=== PATIENT | male | born 1985 | race African-American/Black ===

== ENCOUNTER 2016-08-30 03:23 | Emergency (ER) | payer SELFPAY ==
[~2016-08-30] VITALS: Ht 172.7 cm; Wt 59.8 kg
[2016-08-30 03:42] VITALS: TEMP 37.1; Ht 172.7 cm; Wt 59.8 kg
[2016-08-30] MEDS ORDERED: ONDANSETRON INJ 2 MG/ML 2 ML VIAL IV STA (03:58)
[2016-08-30] MEDS ORDERED: SODIUM CHLORIDE 0.9% 1000ML 1,000 ML IV ONE ×2 (04:00)
[2016-08-30 04:12] LABS: BASO % 0.2 %; BASO ABS # 0.02 K/uL (0-0.2); COMPLETE YES; EOS % 0.1 %; HEMATOCRIT 44.3 % (42-52); IG% 0.2 %; LYMPH % 14.5 %; LYMPH ABS # 1.19 K/uL (1.2-3.4); MEAN CORPUSCULAR HEMOGLOBIN 29.9 pg (25-34); MEAN CORPUSCULAR HGB CONC 34.8 g/dl (32-36); MEAN PLATELET VOLUME 11.1 fL (7.4-10.4); PLATELET COUNT 238 K/uL (130-400); RED BLOOD COUNT 5.15 M/uL (4.7-6.1); WHITE BLOOD COUNT 8.22 K/uL (4.8-10.8)
[2016-08-30 04:29] LABS: BUN/CREATININE RATIO 8.5 (10-20); CALCIUM 9.7 mg/dl (8.5-10.1); CREATININE 1.1 mg/dl (0.60-1.40); MAGNESIUM 1.9 mg/dl (1.8-2.4); POTASSIUM 3.3 mmol/L (3.5-5.1)
[2016-08-30 04:32] LABS: ALB/GLOB RATIO 1.3 (0.9-2)
[2016-08-30 06:06] LABS: MANUAL MICROSCOPIC REQUIRED? NO; REVIEW REQ? YES; URINE APPEARANCE CLEAR (CLEAR); URINE BILIRUBIN NEG (NEG); URINE COLOR YELLOW; URINE EPITHELIAL CELL AUTO >30 /lpf (0-5); URINE NITRITE NEG (NEG); URINE PH >= 9.0 (4.5-7.5); URINE SPECIFIC GRAVITY 1.023 (1.000-1.030); UROBILINOGEN NEG (NEG); ZZUR CULT IF INDIC CLEAN CATCH NO
[2016-08-30 06:07] LABS: SULFASALICYLIC ACID NEG (NEG)
[2016-08-30 06:08] LABS: BENZODIAZEPINE, URINE NEG (NEG); COCAINE,URINE NEG (NEG); PHENCYCLIDINE, URINE NEG (NEG)
[2016-08-30] MEDS ORDERED: ONDANSETRON HOME PACK 4MG OD TAB PO ONE (06:15)
[2016-08-30 06:17] LABS: URINE MUCUS PRESENT (NONE PRSENT)
[2016-08-30 06:22] VITALS: BP 130/80; PULSE 78; O2SAT 98
--- NOTE | 2016-08-31 06:16 | EMERGENCY ROOM VISIT NOTE ---
History First contact with patient: 03:44 Chief Complaint: ABDOMINAL PAIN Stated Complaint: NAUSEA/VOMITING/ABDOMINAL PAIN Nursing Triage Summary: patient presents to ED via EMS after traveling from [place] to [place] and en route patient developed c/o abdominal pain , nausea, vomiting. patient states he has had these same symptoms intermittently since he was a child with no changes. patient states about a month ago he was going to be kept as observation in a hospital but signed himself out AMA. patient vomiting bile upon entry to eD. History of Present Illness The patient is a 31 year old male who presents to the Emergency Room with complaints of nausea and vomiting for the past 2-3 hours. The patient is from the [facility] and was traveling on a [employer] bus from [facility] back home. The patient has abdominal cramping but no significant pain. He states that he had a similar episode one month ago back in [place] , where he was seen in an emergency department. The patient does not know his exact diagnosis and did not follow up as he signed himself out AGAINST MEDICAL ADVICE. The patient rates his discomfort a 5/10. He has not taken anything [id number] for his symptoms. Review of Systems More than 10 systems were reviewed and otherwise negative with the exception of history of present illness. Past Medical/Surgical History No chronic medical disease Family History No pertinent family history Social History Smoking Status: Never Smoker Drug Use: marijuana Housing Status: lives alone Current/Historical Medications No Active Prescriptions or Reported Meds Allergies Coded Allergies: No Known Allergies (Unverified , 08/30/16) Physical Exam Vital Signs Date Time Temp Pulse Resp B/P Pulse Ox O2 Delivery O2 Flow Rate FiO2 08/30/16 06:22 78 20 130/80 98 08/30/16 05:26 91 20 138/81 96 Room Air 08/30/16 03:42 37.1 54 20 111/89 96 Room Air Pain Rating (0-10): 4.0 Physical Exam VITALS: Vitals are noted on the nurse's note and reviewed by myself. Vital signs stable. GENERAL: Well-developed, well-nourished, black male, who is in no acute distress and resting comfortably. Patient is cooperative with the examination. HEAD: Normocephalic atraumatic. MOUTH: Mucous membranes moist. Tonsils are not enlarged. Pharynx without erythema, blood, or exudate. Uvula midline. Airway patent. NECK: Supple without nuchal rigidity. No lymphadenopathy. No thyromegaly. Cervical spine is nontender. HEART: Regular rate and rhythm without murmurs gallops or rubs. LUNGS: Clear to auscultation bilaterally without wheezes, rales or rhonchi. No retractions or accessory muscle use. ABDOMEN: Positive normal bowel sounds x 4. Soft, nontender, without masses or organomegaly. No guarding or rebound tenderness. MUSCULOSKELETAL: No muscle atrophy, erythema, or edema noted. Full range of motion without joint tenderness in all extremities. Medical Decision & Procedures Laboratory Results 08/30/16 03:35 Red Blood Count 5.15, Mean Corpuscular Volume 86.0, Mean Corpuscular Hemoglobin 29.9, Mean Corpuscular Hemoglobin Concent 34.8, Mean Platelet Volume 11.1, Neutrophils (%) (Auto) 79.0, Lymphocytes (%) (Auto) 14.5, Monocytes (%) (Auto) 6.0, Eosinophils (%) (Auto) 0.1, Basophils (%) (Auto) 0.2, Neutrophils # (Auto) 6.49, Lymphocytes # (Auto) 1.19, Monocytes # (Auto) 0.49, Eosinophils # (Auto) 0.01, Basophils # (Auto) 0.02 08/30/16 03:35 Test 08/30/16 00:00 08/30/16 03:35 08/30/16 05:39 Urine Color YELLOW Urine Appearance CLEAR (CLEAR) Urine pH >= 9.0 (4.5-7.5) Urine Specific [place] 1.023 (1.000-1.030) Urine Protein NEG (NEG) Urine Glucose (UA) NEG (NEG) Urine Ketones 1+ (NEG) Urine Occult Blood NEG (NEG) Urine Nitrite NEG (NEG) Urine Bilirubin NEG (NEG) Urine Urobilinogen NEG (NEG) Urine Leukocyte Esterase NEG (NEG) Urine WBC (Auto) 1-5 /hpf (0-5) Urine RBC (Auto) 0-4 /hpf (0-4) Urine Hyaline Casts (Auto) 0 /lpf (0-5) Urine Epithelial Cells (Auto) >30 /lpf (0-5) Urine Bacteria (Auto) NEG (NEG) Urine Renal Epithelial Cells /lpf (0-5) Urine Mucus PRESENT (NONE PRSENT) Urine Sperm (Auto) PRESENT (NOT PRESENT) White Blood Count 8.22 K/uL (4.8-10.8) Red Blood Count 5.15 M/uL (4.7-6.1) Hemoglobin 15.4 g/dL (14.0-18.0) Hematocrit 44.3 % (42-52) Mean Corpuscular Volume 86.0 fL (80-100) Mean Corpuscular Hemoglobin 29.9 pg (25-34) Mean Corpuscular Hemoglobin Concent 34.8 g/dl (32-36) Platelet Count 238 K/uL (130-400) Mean Platelet Volume 11.1 fL (7.4-10.4) Neutrophils (%) (Auto) 79.0 % Lymphocytes (%) (Auto) 14.5 % Monocytes (%) (Auto) 6.0 % Eosinophils (%) (Auto) 0.1 % Basophils (%) (Auto) 0.2 % Neutrophils # (Auto) 6.49 K/uL (1.4-6.5) Lymphocytes # (Auto) 1.19 K/uL (1.2-3.4) Monocytes # (Auto) 0.49 K/uL (0.11-0.59) Eosinophils # (Auto) 0.01 K/uL (0-0.5) Basophils # (Auto) 0.02 K/uL (0-0.2) RDW Standard Deviation 40.5 fL (36.4-46.3) RDW Coefficient of Variation 12.8 % (11.5-14.5) Immature Granulocyte % (Auto) 0.2 % Immature Granulocyte # (Auto) 0.02 K/uL (0.00-0.02) Anion Gap 12.0 mmol/L (3-11) Est Creatinine Clear Calc Drug Dose 80.8 ml/min Estimated GFR () 101.7 Estimated GFR (Non- 87.7 BUN/Creatinine Ratio 8.5 (10-20) Calcium Level 9.7 mg/dl (8.5-10.1) Magnesium Level 1.9 mg/dl (1.8-2.4) Total Bilirubin 0.5 mg/dl (0.2-1) Aspartate Amino Transf (AST/SGOT) 15 U/L (15-37) Alanine Aminotransferase (ALT/SGPT) 26 U/L (12-78) Alkaline Phosphatase 73 U/L (45-117) Total Protein 8.2 gm/dl (6.4-8.2) Albumin 4.6 gm/dl (3.4-5.0) Globulin 3.6 gm/dl (2.5-4.0) Albumin/Globulin Ratio 1.3 (0.9-2) Lipase 164 U/L (73-393) Urine Opiates Screen NEG (NEG) Urine Methadone, Qualitative NEG (NEG) Urine Barbiturates NEG (NEG) Urine Phencyclidine (PCP) Level NEG (NEG) Ur Amphetamine/Methamphetamine NEG (NEG) MDMA (Ecstasy) Screen NEG (NEG) Urine Benzodiazepines Screen NEG (NEG) Urine Cocaine Metabolite NEG (NEG) Urine Marijuana (THC) POS (NEG) Medications Administered Medications (Trade) Dose Ordered Sig/Odalis Route Start Time Stop Time Status Last Admin Dose Admin Sodium Chloride 1,000 ml @ 999 mls/hr Q1H1M ONCE IV 08/30/16 04:00 08/30/16 05:00 DC 08/30/16 04:15 999 MLS/HR Sodium Chloride (Nss 1000ml) 1,000 ml @ 999 mls/hr Q1H1M ONCE IV 08/30/16 04:00 08/30/16 05:00 DC 08/30/16 04:15 999 MLS/HR Ondansetron HCl (Zofran Inj) 8 mg NOW STAT IV 08/30/16 03:58 08/30/16 03:59 DC 08/30/16 04:13 8 MG Ondansetron HCl (ZOFRAN ODT 4MG Home Pack) 1 homepack UD ONCE PO 08/30/16 06:15 08/30/16 06:16 DC 08/30/16 06:15 1 HOMEPACK ED Course Physical exam and history were performed. Nursing notes and EMR were reviewed. Patient appears to have nausea and vomiting for the past few hours. The patient does not appear toxic on examination. IV access was established and labs were obtained. The patient was hydrated with normal saline and given IV Zofran for his symptoms. The patient's blood work is as above and was reviewed. He does not have a significantly elevated white blood cell count, anemia, bandemia, or gross electrolyte imbalance. Lipase and transaminases are nondiagnostic. His urine is without evidence of infection. Drug of abuse screen was positive for marijuana. The patient was reevaluated multiple times while under our care. Repeat abdominal exams showed no worsening of symptoms. The patient felt much better after Zofran. I suspect that his symptoms tonight may be viral or foodborne in etiology. He may also be having some motion sickness from riding on a bus. He also may have some cyclic vomiting from chronic marijuana use. The patient overall does not appear to have a surgical abdomen. He will be given a home pack of Zofran. I involved case management and nursing to help provide the patient with information to take public transportation from the hospital to the bus station [facility]. From there he can arrange transport back to [place]. The patient was pleased with this and voiced understanding. He is to follow with his PCP upon returning home. He was invited the ER anytime and rated his discomfort a 0 /10 at the time of departure. The chart was completed utilizing [employer] Voice Recognition Software. Grammatical errors, random word insertions, pronoun errors, and incomplete sentences are an occasional consequence of this system due to software limitations, ambient noise, and hardware issues. Any formal questions or concerns about the content, text, or information contained within the body of this dictation should be directly addressed to the provider for clarification. . Medical Decision Differential diagnosis: Etiologies such as gastroenteritis, food borne illness, infections, appendicitis , diverticulitis, inflammatory bowel disease, obstruction, GI bleed, biliary pathology, as well as others were entertained. Impression Primary Impression: Nausea and vomiting Departure Information Dispostion Home / Self-Care Condition GOOD Prescriptions No Active Prescriptions or Reported Meds Forms Call Back Authorization, HOME CARE DOCUMENTATION FORM, IMPORTANT VISIT INFORMATION Patient Instructions My [facility] Additional Instructions You were seen and evaluated today on an emergency basis only. This is not a substitute for, or an effort to provide, complete comprehensive medical care. It is not possible to recognize and treat all injuries or illnesses in a single emergency department visit. For this reason it is recommended that you followup with Your primary care physician upon returning home for further care and management. Zofran 1 tablet every 6 hrs as needed for nausea. Drink plenty of fluids and remain well hydrated. You will be able to take the [employer] bus from the Hospital to [facility]. The bus schedule is available at [email or web address] There is a [place] bus station in [facility] at [address] [address]. They can assist you with your travels back home. You are welcome to return to the emergency department anytime with new, worsening, or concerning symptoms.
== END 2016-08-30 06:23 | disposition home or self-care (01) ==
LOC: EDBD 03:23 → C.EDA 03:27
DX: R11.2 Nausea with vomiting, unspecified (principal)

== ENCOUNTER 2016-08-30 08:03 | Emergency (ER) | payer SELFPAY ==
[~2016-08-30] VITALS: Ht 172.7 cm; Wt 64.0 kg
[2016-08-30 08:08] VITALS: TEMP 37; Ht 172.7 cm; Wt 64.0 kg
[2016-08-30] MEDS ORDERED: KETOROLAC TROMETHAMINE 30 MG/ML VIAL IV STA (08:20)
[2016-08-30] MEDS ORDERED: SODIUM CHLORIDE 0.9% 1000ML 1,000 ML IV STA (08:20)
[2016-08-30] MEDS ORDERED: ONDANSETRON INJ 2 MG/ML 2 ML VIAL IV STA (08:20)
[2016-08-30] MEDS ORDERED: OPTIRAY 320 IV PRN (08:30)
--- NOTE | 2016-08-30 08:39 | EMERGENCY ROOM VISIT NOTE ---
History First contact with patient: 08:08 Chief Complaint: ABDOMINAL PAIN Stated Complaint: ABDOMINAL PAIN Nursing Triage Summary: pt here with upper abd pains. pt called 911 from campus. pt just discharged from here one hour ago for same. pt took 4 mg zofran odt and then vomited. History of Present Illness The patient is a 31 year old male who presents to the Emergency Room with complaints of abdominal pain and vomiting. The patient was seen here overnight and was discharged approximately one hour ago. He was given a home pack of Zofran and states that he took one pill, but immediately vomited. The patient reports he has pain in the middle of his stomach as well as vomiting and diarrhea. The symptoms started yesterday, but he states that he has had similar symptoms since he was a child. He does not have a primary care provider and has never seen a specialist for his GI symptoms. He has not taken anything for pain. He rates his discomfort a 10/10. He denies any blood in his stools, melena, urinary symptoms, chest pain, shortness of breath, fevers or recent illness. Review of Systems A complete 10-point Review of Systems was discussed with the patient, with pertinent positives and negatives listed in the History of Present Illness. All remaining Review of Systems questions can be considered negative unless otherwise specified. Social History Smoking Status: Never Smoker Current/Historical Medications No Active Prescriptions or Reported Meds Allergies Coded Allergies: No Known Allergies (Unverified , 08/30/16) Physical Exam Vital Signs Date Time Temp Pulse Resp B/P Pulse Ox O2 Delivery O2 Flow Rate FiO2 08/30/16 10:45 75 16 119/85 99 Room Air 08/30/16 09:32 61 18 114/77 100 Room Air 08/30/16 08:10 56 08/30/16 08:08 37.0 59 18 116/68 100 Room Air Physical Exam VITALS: Vitals are noted on the nurse's note and reviewed by myself. Vital signs stable. GENERAL: This is a 31-year-old male, anxious appearing, nondiaphoretic, well- developed well-nourished. SKIN: Capillary reflex less than 2 seconds. HEART: Regular rate and rhythm without murmurs gallops or rubs. LUNGS: Clear to auscultation bilaterally without wheezes, rales or rhonchi. ABDOMEN: Positive bowel sounds x 4. The abdomen is soft with mild diffuse tenderness. No guarding or rebound tenderness. NEURO: Patient was alert and oriented to person place and time. Medical Decision & Procedures ER Provider Diagnostic Interpretation: CT SCAN OF THE ABDOMEN AND PELVIS WITH IV CONTRAST IMPRESSION: 1. There is hepatic periportal edema, which could be related to hydration status or possibly hepatic inflammation. 2. There is nonspecific gallbladder wall thickening and edema. This may be related to an adjacent hepatic process/edema. Correlation with hepatic transaminases and serum bilirubin levels will be required. 3. There is a small volume of free fluid in the pelvis, likely on a reactive basis. 4. Question mild wall thickening and hyperemia involving the distal/terminal ileum. Additionally, there is underdistention versus mild wall thickening seen within the transverse and descending colon. Correlate clinically for evidence of a mild nonspecific enterocolitis. Laboratory Results 08/30/16 08:25 Red Blood Count 5.01, Mean Corpuscular Volume 86.4, Mean Corpuscular Hemoglobin 30.7, Mean Corpuscular Hemoglobin Concent 35.6, Mean Platelet Volume 11.4, Neutrophils (%) (Auto) 84.4, Lymphocytes (%) (Auto) 10.4, Monocytes (%) (Auto) 4.9, Eosinophils (%) (Auto) 0.0, Basophils (%) (Auto) 0.2, Neutrophils # (Auto) 7.47, Lymphocytes # (Auto) 0.92, Monocytes # (Auto) 0.43, Eosinophils # (Auto) 0.00, Basophils # (Auto) 0.02 08/30/16 08:25 Test 08/30/16 08:25 White Blood Count 8.85 K/uL (4.8-10.8) Red Blood Count 5.01 M/uL (4.7-6.1) Hemoglobin 15.4 g/dL (14.0-18.0) Hematocrit 43.3 % (42-52) Mean Corpuscular Volume 86.4 fL (80-100) Mean Corpuscular Hemoglobin 30.7 pg (25-34) Mean Corpuscular Hemoglobin Concent 35.6 g/dl (32-36) Platelet Count 232 K/uL (130-400) Mean Platelet Volume 11.4 fL (7.4-10.4) Neutrophils (%) (Auto) 84.4 % Lymphocytes (%) (Auto) 10.4 % Monocytes (%) (Auto) 4.9 % Eosinophils (%) (Auto) 0.0 % Basophils (%) (Auto) 0.2 % Neutrophils # (Auto) 7.47 K/uL (1.4-6.5) Lymphocytes # (Auto) 0.92 K/uL (1.2-3.4) Monocytes # (Auto) 0.43 K/uL (0.11-0.59) Eosinophils # (Auto) 0.00 K/uL (0-0.5) Basophils # (Auto) 0.02 K/uL (0-0.2) RDW Standard Deviation 41.5 fL (36.4-46.3) RDW Coefficient of Variation 12.9 % (11.5-14.5) Immature Granulocyte % (Auto) 0.1 % Immature Granulocyte # (Auto) 0.01 K/uL (0.00-0.02) Anion Gap 18.0 mmol/L (3-11) Est Creatinine Clear Calc Drug Dose 86.5 ml/min Estimated GFR () 101.7 Estimated GFR (Non- 87.7 BUN/Creatinine Ratio 7.5 (10-20) Calcium Level 9.1 mg/dl (8.5-10.1) Total Bilirubin 0.7 mg/dl (0.2-1) Aspartate Amino Transf (AST/SGOT) 19 U/L (15-37) Alanine Aminotransferase (ALT/SGPT) 23 U/L (12-78) Alkaline Phosphatase 69 U/L (45-117) Total Protein 7.6 gm/dl (6.4-8.2) Albumin 4.3 gm/dl (3.4-5.0) Globulin 3.3 gm/dl (2.5-4.0) Albumin/Globulin Ratio 1.3 (0.9-2) Lipase 147 U/L (73-393) Medications Administered Medications (Trade) Dose Ordered Sig/Odalis Route Start Time Stop Time Status Last Admin Dose Admin Sodium Chloride (Nss 1000ml) 1,000 ml @ 999 mls/hr Q1H1M STAT IV 08/30/16 08:20 08/30/16 09:20 DC 08/30/16 08:20 999 MLS/HR Ketorolac Tromethamine (Toradol Inj) 30 mg NOW STAT IV 08/30/16 08:20 1/27/17 08:24 DC 08/30/16 08:29 30 MG Ondansetron HCl (Zofran Inj) 4 mg NOW STAT IV 08/30/16 08:20 08/30/16 08:24 DC 08/30/16 08:28 4 MG ECG Indication: abdominal pain Rate (beats per minute): 52 Rhythm: sinus bradycardia Findings: no acute ischemic change, no ectopy Comparison ECG Date: no prior available Medical Decision Differential diagnosis includes gastroenteritis, colitis, appendicitis, cholecystitis, among others. The patient was evaluated as above. Labs were drawn and IV access was obtained. Imaging studies were performed and read by radiology as above. The patient was medicated with 30 mg Toradol IV and 4 mg Zofran IV. He was hydrated with 1 L normal saline solution. The patient was reassessed multiple times during their stay in the emergency department and remained in stable condition. The patient is a 31-year-old male who presents today complaining of nausea and vomiting associated with abdominal pain. The patient was seen here several hours ago for similar symptoms. Those records were reviewed. There was no imaging done at that time. A CT scan of the abdomen and pelvis was performed and did not show any obvious acute findings. There was some questionable gallbladder wall thickening. I feel this is most likely related to the patient' s hydration status, but did recommend right upper quadrant ultrasound given his obvious vomiting and mild elevation of anion gap. There was no leukocytosis or anemia. LFTs were within normal limits. I was approached by the patient's nurses, who stated that the patient did not want to wait for ultrasound did speak with the patient, who at this time was dressed and walking around the room and appeared to be much better than on my initial evaluation. He stated that he felt much better and wanted to be discharged home. I did recommend ultrasound to rule out gallbladder disease, but the patient refused. He reported that he had a bus to catch and is planning to follow-up with his primary care provider at home. I did recommend mentioning to the primary care provider the abnormalities on CT scan. He will return to the nearest emergency department if he has worsening symptoms. Based on the patient's presentation, lab results, and imaging studies, I feel the patient is stable for outpatient treatment. Discharge instructions were reviewed with the patient. The patient verbalized understanding of my assessment and treatment plan and was discharged home in good condition. Impression Primary Impression: Nausea and vomiting Departure Information Dispostion Home / Self-Care Condition GOOD Prescriptions No Active Prescriptions or Reported Meds Referrals No Doctor, Assigned (PCP) Patient Instructions My [facility] Additional Instructions You have been treated in the Emergency Department your Abdominal Pain. Laboratory results and imaging studies have ruled out any emergent causes for your abdominal pain which would warrant admission or surgery. Continue to follow the discharge instructions given to you on your earlier visit. For pain control, you can use the following chum-[id number] medicines (if >12 yo): - Regular strength (325mg/tab) Tylenol (acetaminophen) 2 tabs every 4-6 hours as needed. Do not exceed 12 tablets in a 24 hour period. Avoid taking more than 4 grams (4000 mg) of Tylenol per day. This includes any other sources of acetaminophen you may take on a regular basis. - Regular strength (200 mg/tab) Advil (ibuprofen) 1-2 tabs every 4-6 hours as needed. Do not exceed a dose of 3200 mg per day. Continue Zofran as needed for nausea. Drink plenty of water and stay well hydrated. As with any trip to the Emergency Department, you should follow-up with your Primary Care Provider from today's visit. Go to the nearest emergency department if your symptoms persist despite treatment plan outlined above or if the following symptoms occur: Fevers, increased vomiting, worsening abdominal pain, blood in her stools or any other new/concerning symptoms. Problem Qualifiers Primary Impression: Nausea and vomiting Vomiting type: unspecified Vomiting Intractability: non-intractable Qualified Codes: R11.2 - Nausea with vomiting, unspecified
[2016-08-30 08:56] LABS: BASO % 0.2 %; BASO ABS # 0.02 K/uL (0-0.2); COMPLETE YES; HEMATOCRIT 43.3 % (42-52); IG% 0.1 %; LYMPH % 10.4 %; LYMPH ABS # 0.92 K/uL (1.2-3.4); MEAN CELL VOLUME 86.4 fL (80-100); MEAN CORPUSCULAR HEMOGLOBIN 30.7 pg (25-34); MEAN CORPUSCULAR HGB CONC 35.6 g/dl (32-36); MEAN PLATELET VOLUME 11.4 fL (7.4-10.4); MONO % 4.9 %; NEUT % 84.4 %; PLATELET COUNT 232 K/uL (130-400); RED BLOOD COUNT 5.01 M/uL (4.7-6.1); WHITE BLOOD COUNT 8.85 K/uL (4.8-10.8)
[2016-08-30 09:03] LABS: BUN/CREATININE RATIO 7.5 (10-20); CALCIUM 9.1 mg/dl (8.5-10.1); CREATININE 1.1 mg/dl (0.60-1.40); POTASSIUM 3.4 mmol/L (3.5-5.1)
--- NOTE | 2016-08-30 09:03 | DIAGNOSTIC IMAGING REPORT ---
CT SCAN OF THE ABDOMEN AND PELVIS WITH IV CONTRAST CLINICAL HISTORY: Generalized abdominal pain. Vomiting. COMPARISON STUDY: No priors. TECHNIQUE: Following the IV administration of 92 cc of Optiray 320, CT scan of the abdomen and pelvis is performed from the lung bases to the proximal femora. Images are reviewed in the axial, sagittal, and coronal planes. IV contrast was administered without complication. Automated dose control exposure was utilized. CT DOSE: 324.60 mGycm FINDINGS: Lung bases: The heart is normal in size and without pericardial effusion. A calcified granuloma is seen in the left lower lobe. The lung bases are otherwise clear. Liver: The contrast-enhanced liver is normal in size, contour, and attenuation. There is no intrahepatic biliary ductal dilatation. The hepatic veins and portal veins are patent. There is periportal edema. Gallbladder: There is nonspecific gallbladder wall thickening and edema. Spleen: Normal in size and attenuation. Pancreas: Unremarkable. Adrenal glands: Unremarkable. Kidneys: The contrast enhanced kidneys are normal in size and without hydronephrosis. The kidneys enhance symmetrically. Abdominal vasculature: The abdominal aorta is normal in course and caliber. Bowel: There is no bowel obstruction. Mild wall thickening and hyperemia is suggested within the distal/terminal ileum. There is underdistention versus mild wall thickening seen within the transverse and descending colon. The appendix is well-visualized and normal. Peritoneum: There is no intraperitoneal free air. There is a small volume of free fluid in the pelvis. Lymphadenopathy: None. Pelvic viscera: The bladder, prostate, and seminal vesicles are normal as visualized. Skeletal structures: No lytic or blastic lesions are seen. IMPRESSION: 1. There is hepatic periportal edema, which could be related to hydration status or possibly hepatic inflammation. 2. There is nonspecific gallbladder wall thickening and edema. This may be related to an adjacent hepatic process/edema. Correlation with hepatic transaminases and serum bilirubin levels will be required. 3. There is a small volume of free fluid in the pelvis, likely on a reactive basis. 4. Question mild wall thickening and hyperemia involving the distal/terminal ileum. Additionally, there is underdistention versus mild wall thickening seen within the transverse and descending colon. Correlate clinically for evidence of a mild nonspecific enterocolitis. Electronically signed by: Paramjit Oviedo M.D. 08/30/2016 9:02 AM Dictated Date/Time: 08/30/2016 8:54 AM
[2016-08-30 09:06] LABS: ALB/GLOB RATIO 1.3 (0.9-2)
[2016-08-30 10:45] VITALS: BP 119/85; PULSE 75; O2SAT 99
== END 2016-08-30 10:48 | disposition home or self-care (01) ==
LOC: EDBD 08:03 → C.EDA 08:05
DX: R11.2 Nausea with vomiting, unspecified (principal); R10.9 Unspecified abdominal pain; R00.0 Tachycardia, unspecified